=== PATIENT | female | born 1995 | race Caucasian/White ===

== ENCOUNTER 2018-04-25 23:33 | Emergency (ER) | payer OTHER ==
[2018-04-26] MEDS ORDERED: KETOROLAC 30 MG INJ IM (04:01)
[2018-04-26 04:20] LABS: URINE BLOOD (Dip) POC 2+ (NEGATIVE); URINE GLUCOSE (Dip) POC Negative (NEGATIVE); URINE KETONES (Dip) POC Negative (NEGATIVE); URINE LEUKOCYTE EST (Dip) POC Negative (NEGATIVE); URINE NITRITE (Dip) POC Negative (NEGATIVE); URINE TOTAL PROTEIN POC 1+ (NEGATIVE)
[2018-04-26] MEDS: RANITIDINE 150 MG TAB PO (04:34)
[2018-04-26] MEDS: ONDANSETRON (ODT) 4 MG TAB ODT (04:34)
[2018-04-26] MEDS: AL HYDROX/MG HYDROX/SIMETH 30 ML CUP PO (04:34)
== END 2018-04-26 04:50 | disposition left against medical advice (07) ==
LOC: FTE 23:33
DX: R10.9 Unspecified abdominal pain (principal); R07.9 Chest pain, unspecified; R06.02 Shortness of breath; R11.0 Nausea
CPT/HCPCS: 81003; 81025; 99283